=== PATIENT | male | born 1980 | race Two or more races ===

== ENCOUNTER 2016-05-06 17:00 | Emergency (ER) | payer SELFPAY ==
--- NOTE | 2016-05-06 17:43 | ER Document Report ---
ED Cardiac - General Mode of Arrival: Ambulatory Information source: Patient TRAVEL OUTSIDE OF THE [place] IN LAST 30 DAYS: No - HPI Patient complains to provider of: Chest pain, Shortness of breath Was the onset of pain: Gradual Chest pain location: Under breast Quality of pain: Intermittent Chest pain radiation location: Back Pain level currently: Denies Cardiac risk factors: denies: Smoker, + Family history, Hx [place] Positive cardiac history: No Associated symptoms: Back pain, Fever/chills - Subjective 2 days ago, Shortness of breath. denies: Abdominal pain, Dizziness, Headache, Nausea/vomiting Exacerbated by: Coughing Relieved by: Rest Similar symptoms previously: No Recently seen / treated by doctor: Yes - seen at urgent care and to here for further evaluation <YUMI PIÑA - Last Filed: 05/06/16 19:25> <PETE MAYEN - Last Filed: 05/07/16 08:14> - General Chief Complaint: Chest Pain Stated Complaint: COUGH Notes: Patient presents complaining of occasionally productive cough for the past 5 days. Patient reports subjective fever 2 days ago but none since then. Patient states that he developed chest pain with coughing only and shortness of breath this morning. Patient states that whenever he is sitting there with coughing he does not have any chest pain. Patient denies any family history of early cardiac disease. She was seen in an urgent care and had an EKG performed and given aspirin and advised to come here for further evaluation. (YUMI PIÑA) - Related Data Allergies/Adverse Reactions: No Known Allergies Allergy (Verified 05/06/16 17:06) Past Medical History - General Information source: Patient - Social History Smoking Status: Never Smoker Frequency of alcohol use: Occasional Drug Abuse: None Occupation: construction Lives with: Family Family History: Reviewed & Not Pertinent Patient has suicidal ideation: No Patient has homicidal ideation: No - Medical History Medical History: Negative Renal/ Medical History: Denies: Hx Peritoneal Dialysis Surgical Hx: Negative <YUMI PIÑA - Last Filed: 05/06/16 19:25> Review of Systems - Review of Systems Constitutional: Fever - Subjective 2 days ago EENT: No symptoms reported Cardiovascular: Chest pain. denies: Dizziness, Lightheaded Respiratory: Cough, Short of breath, Sputum, Wheezing Gastrointestinal: No symptoms reported. denies: Abdominal pain, Diarrhea, Nausea, Vomiting Genitourinary: No symptoms reported. denies: Dysuria, Flank pain Male Genitourinary: No symptoms reported Musculoskeletal: Back pain - Chest pain radiates to the back with coughing Skin: No symptoms reported Hematologic/Lymphatic: No symptoms reported Neurological/Psychological: No symptoms reported <YUMI PIÑA - Last Filed: 05/06/16 19:25> Physical Exam - General General appearance: Appears well, Alert In distress: None - HEENT Head: Normocephalic, Atraumatic Eyes: Normal Conjunctiva: Normal Nasal: Normal Mouth/Lips: Normal Mucous membranes: Normal Pharynx: Normal Neck: Normal, Supple. No: Lymphadenopathy - Respiratory Respiratory status: No respiratory distress Chest status: Pain with cough Breath sounds: Nonproductive cough, Wheezing Chest palpation: Normal. No: Tender - Cardiovascular Rhythm: Regular Heart sounds: S1 appreciated, S2 appreciated Murmur: No - Back Back: Normal, Nontender. No: CVA tenderness - Extremities General upper extremity: Normal inspection, Normal strength General lower extremity: Normal inspection, Normal strength - Neurological Neuro grossly intact: Yes Cognition: Normal Orientation: AAOx4 [place] Coma Scale Eye Opening: Spontaneous [place] Coma Scale Verbal: Oriented [place] Coma Scale Motor: Obeys Commands [place] Coma Scale Total: 15 - Psychological Associated symptoms: Normal affect, Normal mood - Skin Skin Temperature: Warm Skin Moisture: Dry Skin Color: Normal <YUMI PIÑA - Last Filed: 05/06/16 19:25> - Respiratory Respiratory status: No respiratory distress Chest status: Pain with cough Breath sounds: Normal - CTAB, Nonproductive cough Chest palpation: Normal - Cardiovascular Rhythm: Regular Heart sounds: Normal auscultation Murmur: No Pulses: Normal: Radial Normal capillary refill: Yes <PETE MAYEN - Last Filed: 05/07/16 08:14> - Vital signs Vitals: Temp Pulse Resp BP Pulse Ox 98.8 F 73 16 141/93 H 96 05/06/16 17:05 05/06/16 17:05 05/06/16 17:05 05/06/16 17:05 05/06/16 17:05 Course - Laboratory Result Diagrams: 05/06/16 18:22 05/06/16 18:22 <WANGBRIONNANAGI - Last Filed: 05/06/16 19:25> - Laboratory Result Diagrams: 05/06/16 18:22 05/06/16 18:22 - Diagnostic Test Radiology reviewed: Image reviewed, Reports reviewed - EKG Interpretation by Me EKG shows normal: Sinus rhythm, [place], Intervals, QRS Complexes, ST-T Waves - T- wave inversions Rate: Normal When compared to previous EKG there are: Previous EKG unavailable <PETE MAYEN - Last Filed: 05/07/16 08:14> - Re-evaluation Re-evalutation: 05/06/16 19:25 Bedside report and handoff given to Char Mayen PAPER BALING MACHINE OPERATOR (YUMI PIÑA) 05/06/16 21:00 Patient hemodynamically stable, in no distress, afebrile, nontoxic, and appears well-hydrated. Cardiac enzymes negative. Chest x-ray shows left upper lobe pneumonia. Reevaluated patient who has clear lung sounds and reports chest pain is only with cough and he has no chest pain at rest or with exertion as he has been walking daily over the last 2 weeks for exercise up to 5 miles a day with no chest pain, diaphoresis, or dyspnea. Discussed findings with ED physician Dr. Mcadams who recommends treating pneumonia with oral Levaquin and follow up with facs teacher for abnormal findings on EKG. (PETE MAYEN) - Vital Signs Vital signs: Temp Pulse Resp BP Pulse Ox 98.8 F 73 20 103/49 L 96 05/06/16 17:05 05/06/16 17:05 05/06/16 21:15 05/06/16 21:15 05/06/16 21:15 - Laboratory Laboratory results interpreted by me: 05/06/16 05/06/16 18:22 18:22 RBC 4.26 L Hgb 13.2 L Hct 37.8 L Monocytes % 14.7 H Creatine Kinase 207 H Discharge <YUMI PIÑA - Last Filed: 05/06/16 19:25> <PETE MAYEN - Last Filed: 05/07/16 08:14> - Discharge Clinical Impression: Pneumonia Qualifiers: Pneumonia type: due to unspecified organism Laterality: left Lung location: upper lobe of lung Qualified Code(s): J18.1 - Lobar pneumonia, unspecified organism Condition: Stable Disposition: HOME, SELF-CARE Instructions: Pneumonia ([facility]), Levofloxacin, Inhaled Bronchodilators ([facility]), Steroid Medication, Chest Pain of Unclear Cause ([facility]), Electrogram Abnormality ( [facility]) Additional Instructions: Follow-up with your primary care provider this week. Call [facility] [employer] for appointment on Sunday. Return to the Emergency Department if you develop chest pain without cough, shortness of breath, or any other worsening symptoms or concerns. Prescriptions: Albuterol Sulfate [Proair HFA Inhalation Aerosol 8.5 gm MDI] 2 puff IH Q4H PRN # 1 mdi PRN Reason: Levofloxacin [Levaquin 750 mg Tablet] 750 mg PO DAILY #7 tablet Prednisone [Deltasone 10 mg Tablet] 10 mg PO ASDIR PRN #21 tablet PRN Reason: Forms: Elevated Blood Pressure Referrals: MAYRA ABEBE MD [ACTIVE STAFF] - 05/08/16
[2016-05-06 18:58] LABS: ABSOLUTE EOSINOPHILS # (AUTO) 0.1 10^3/uL (0.0-0.6); ABSOLUTE LYMPHOCYTES (AUTO) 2.2 10^3/uL (0.5-4.7); ABSOLUTE MONOCYTES (AUTO) 1.3 10^3/uL (0.1-1.4); ABSOLUTE NEUT (AUTO) 5.1 10^3/uL (1.7-8.2); BASOPHILS % (AUTO) 0.5 % (0-2); EOSINOPHILS % (AUTO) 1.6 % (0-6); HEMATOCRIT 37.8 % (37.9-51.0); HEMOGLOBIN 13.2 g/dL (13.5-17.0); HGB HCT DIFFERENCE 1.8; LYMPHOCYTES % (AUTO) 25.1 % (13-45); MEAN CORPUSCULAR HEMOGLOBIN 30.9 pg (27.0-33.4); MEAN CORPUSCULAR HGB CONC 34.9 g/dL (32.0-36.0); MEAN CORPUSCULAR VOLUME 89 fl (80-97); MONOCYTES % (AUTO) 14.7 % (3-13); RED BLOOD COUNT 4.26 10^6/uL (4.35-5.55); RED CELL DISTRIBUTION WIDTH 12.8 % (11.5-14.0); SEGMENTED NEUTROPHILS % (AUTO) 58.1 % (42-78); WHITE BLOOD COUNT 8.8 10^3/uL (4.0-10.5)
[2016-05-06 19:18] LABS: ALANINE AMINOTRANSFERASE 34 U/L (21-72); ALBUMIN 4.6 g/dL (3.5-5.0); ALKALINE PHOSPHATASE 73 U/L (38-126); ANION GAP 15 (5-19); ASPARTATE AMINO TRANSFERASE 21 U/L (17-59); BILIRUBIN,DIRECT 0.2 mg/dL (0.0-0.4); BILIRUBIN,TOTAL 0.6 mg/dL (0.2-1.3); BLOOD UREA NITROGEN 11 mg/dL (7-20); CALCIUM 9.6 mg/dL (8.4-10.2); CARBON DIOXIDE 25 mmol/L (22-30); CHLORIDE 105 mmol/L (98-107); CREATINE KINASE 207 U/L (55-170); GLUCOSE 92 mg/dL (75-110); LIPASE 65.4 U/L (23-300); MAGNESIUM 2.2 mg/dL (1.6-2.3); POTASSIUM 4.5 mmol/L (3.6-5.0); TOTAL PROTEIN 7.4 g/dL (6.3-8.2)
[2016-05-06] MEDS ORDERED: PREDNISONE 20 MG TABLET PO ONE (19:24)
[2016-05-06] MEDS ORDERED: IPRATROPIUM/ALBUTEROL 0.5-2.5 MG/3 ML AMPUL NEB ONE (19:24)
[2016-05-06 19:36] LABS: CREATINE KINASE MB 1.76 ng/mL (<4.55); TROPONIN I < 0.012 ng/mL
[2016-05-06 19:39] LABS: APPEARANCE,URINE CLEAR; BILIRUBIN,URINE NEGATIVE (NEGATIVE); GLUCOSE, URINE NEGATIVE (NEGATIVE); KETONES,URINE NEGATIVE (NEGATIVE)
[2016-05-06 19:40] LABS: LEUKOCYTE ESTERASE,URINE NEGATIVE (NEGATIVE); NITRITE,URINE NEGATIVE (NEGATIVE); PROTEIN,URINE NEGATIVE (NEGATIVE); URINE SPECIFIC GRAVITY 1.011; UROBILINOGEN,URINE NEGATIVE mg/dL (<2.0)
[2016-05-06 19:46] LABS: URINE BARBITURATES SCREEN NEGATIVE; URINE METHADONE SCREEN NEGATIVE; URINE OPIATES LOW NEGATIVE; URINE PHENCYCLIDINE SCREEN NEGATIVE
[2016-05-06] MEDS ORDERED: LEVOFLOXACIN 750 MG TABLET PO ONE (20:32)
[2016-05-06 21:25] VITALS: BP 103/49
--- NOTE | 2016-05-07 00:07 | EKG REPORT ---
SEVERITY:- ABNORMAL ECG - SINUS RHYTHM ABNORMAL T, CONSIDER ISCHEMIA, DIFFUSE LEADS : Confirmed by: Sujata Lynn 07-May-2016 00:06:37
== END 2016-05-06 21:25 | disposition home or self-care (01) ==
LOC: ER 17:00
DX: J18.1 Lobar pneumonia, unspecified organism (principal); R06.02 Shortness of breath; R05 Cough; R07.89 Other chest pain; R06.2 Wheezing
CPT/HCPCS: 93005; 94640; 99285; 36415; 82553; 82550; 83690; 83735; 85025; 80053; 81001; 84484; 80307; 71020; 93010; J7512; J7620

== ENCOUNTER 2019-01-20 13:46 | Emergency (ER) | payer SELFPAY ==
--- NOTE | 2019-01-20 16:42 | ER Document Report ---
ED Medical Screen (RME) - General Chief Complaint: Chest Pain Stated Complaint: CHEST PAIN Time Seen by Provider: 01/20/19 16:32 Mode of Arrival: Ambulatory Information source: Patient Notes: This 38-year-old male with history of pneumonia presents emergency department with left-sided chest pain. Reports he was treated for pneumonia last Sunday with Zithromax. He reports this morning started having chest pain felt a bit dizzy. He also reports that he has had some rectal bleeding. Denies fever vomiting diarrhea. Denies history of cardiac disease. I have greeted and performed a rapid initial assessment of this patient. A comprehensive ED assessment and evaluation of the patient, analysis of test results and completion of the medical decision making process will be conducted by additional ED providers. Dictation of this chart was performed using voice recognition software; therefore, there may be some unintended grammatical errors. TRAVEL OUTSIDE OF THE [place] IN LAST 30 DAYS: No - Related Data Allergies/Adverse Reactions: No Known Allergies Allergy (Verified 05/06/16 17:06) Past Medical History Renal/ Medical History: Denies: Hx Peritoneal Dialysis Physical Exam - Vital signs Vitals: Temp Pulse Resp BP Pulse Ox 99.0 F 72 16 156/90 H 98 01/20/19 14:32 01/20/19 14:32 01/20/19 14:32 01/20/19 14:32 01/20/19 14:32 Course - Vital Signs Vital signs: Temp Pulse Resp BP Pulse Ox 99.0 F 72 16 156/90 H 98 01/20/19 16:33 01/20/19 14:32 01/20/19 16:33 01/20/19 14:32 01/20/19 16:33
--- NOTE | 2019-01-20 17:31 | RADIOLOGY REPORT (SQ) ---
EXAM DESCRIPTION: CHEST 2 VIEWS COMPLETED DATE/TIME: 01/20/2019 5:17 pm REASON FOR STUDY: cp COMPARISON: 05/06/2016. EXAM PARAMETERS: NUMBER OF VIEWS: two views TECHNIQUE: Digital Frontal and Lateral radiographic views of the chest acquired. RADIATION DOSE: NA LIMITATIONS: none FINDINGS: LUNGS AND PLEURA: No opacities, masses or pneumothorax. No pleural effusion. MEDIASTINUM AND HILAR STRUCTURES: No masses or contour abnormalities. HEART AND VASCULAR STRUCTURES: Heart normal size. No evidence for failure. BONES: No acute findings. HARDWARE: None in the chest. OTHER: No other significant finding. IMPRESSION: NO ACUTE RADIOGRAPHIC FINDING IN THE CHEST. TECHNICAL DOCUMENTATION: JOB ID: [id number] [employer]- All Rights Reserved Reading location - IP/workstation name: [email or web address]
[2019-01-20 17:41] LABS: ABSOLUTE BASOPHILS # (AUTO) 0.1 10^3/uL (0.0-0.2); ABSOLUTE EOSINOPHILS # (AUTO) 0.1 10^3/uL (0.0-0.6); ABSOLUTE LYMPHOCYTES (AUTO) 2.6 10^3/uL (0.5-4.7); ABSOLUTE MONOCYTES (AUTO) 0.8 10^3/uL (0.1-1.4); BASOPHILS % (AUTO) 0.7 % (0-2); EOSINOPHILS % (AUTO) 0.6 % (0-6); HEMATOCRIT 43.3 % (37.9-51.0); LYMPHOCYTES % (AUTO) 27.4 % (13-45); MEAN CORPUSCULAR HEMOGLOBIN 31.5 pg (27.0-33.4); MEAN CORPUSCULAR HGB CONC 34.6 g/dL (32.0-36.0); MEAN CORPUSCULAR VOLUME 91 fl (80-97); MONOCYTES % (AUTO) 8.7 % (3-13); PLATELET COUNT 337 10^3/uL (150-450); RED BLOOD COUNT 4.76 10^6/uL (4.35-5.55); RED CELL DISTRIBUTION WIDTH 12.9 % (11.5-14.0); SEGMENTED NEUTROPHILS % (AUTO) 62.6 % (42-78); TOTAL CELLS COUNTED % (AUTO) 100 %; WHITE BLOOD COUNT 9.5 10^3/uL (4.0-10.5)
[2019-01-20 17:59] LABS: ALKALINE PHOSPHATASE 67 U/L (38-126); ANION GAP 13 (5-19); ASPARTATE AMINO TRANSFERASE 19 U/L (17-59); BILIRUBIN,DIRECT 0.1 mg/dL (0.0-0.4); BILIRUBIN,TOTAL 0.6 mg/dL (0.2-1.3); BLOOD UREA NITROGEN 10 mg/dL (7-20); CALCIUM 9.6 mg/dL (8.4-10.2); CARBON DIOXIDE 27 mmol/L (22-30); CHLORIDE 102 mmol/L (98-107); CREATINE KINASE 91 U/L (55-170); GLUCOSE 91 mg/dL (75-110); POTASSIUM 4.2 mmol/L (3.6-5.0); TOTAL PROTEIN 8.5 g/dL (6.3-8.2)
[2019-01-20 18:11] LABS: CREATINE KINASE MB 1.02 ng/mL (<4.55)
[2019-01-20 18:13] LABS: TROPONIN I < 0.012 ng/mL
--- NOTE | 2019-01-20 20:58 | ER Document Report ---
ED General - General Chief Complaint: Chest Pain Stated Complaint: CHEST PAIN Time Seen by Provider: 01/20/19 16:32 Mode of Arrival: Ambulatory Notes: 38-year-old man presents to the emergency department with a complaint of chest pain. States that he was diagnosed with pneumonia approximately 1 week ago at a outside facility. He was treated with Cipro. He continues to have left-sided intermittent chest pain which lasts from 1 to 2 minutes. He does not relate activity to the symptom and the pain is nonradiating. He is not a smoker, denies shortness of breath, and has no palpitations. TRAVEL OUTSIDE OF THE [place] IN LAST 30 DAYS: No - Related Data Allergies/Adverse Reactions: No Known Allergies Allergy (Verified 05/06/16 17:06) Past Medical History - General Information source: Patient - Social History Smoking Status: Former Smoker Cigarette use (# per day): No Family History: Reviewed & Not Pertinent Patient has suicidal ideation: No Patient has homicidal ideation: No Renal/ Medical History: Denies: Hx Peritoneal Dialysis Review of Systems - Review of Systems Notes: Constitutional: Negative for fever. HENT: Negative for sore throat. Eyes: Negative for visual changes. Cardiovascular: + chest pain. Respiratory: Negative for shortness of breath. Gastrointestinal: Negative for abdominal pain, vomiting or diarrhea. Genitourinary: Negative for dysuria. Musculoskeletal: Negative for back pain. Skin: Negative for rash. Neurological: Negative for headaches, weakness or numbness. 10 point ROS negative except as marked above and in HPI. Physical Exam - Vital signs Vitals: Temp Pulse Resp BP Pulse Ox 99.0 F 72 16 156/90 H 98 01/20/19 14:32 01/20/19 14:32 01/20/19 14:32 01/20/19 14:32 01/20/19 14:32 - Notes Notes: PHYSICAL EXAMINATION: Physical Exam: General: Well-nourished well-developed in no acute distress HEENT: NC/AT, pupils equal round and reactive to light, MM moist,nares clear, Neck: supple, no adenopathy, no masses. Lungs: clear, no wheezing, no rales no rhonchi Chest: Tenderness to palpation in the left lateral and posterior chest. CVS: Regular rate and rhythm no murmur gallop or rub Abdomen: Soft active nontender, no masses, no hepatosplenomegaly Ext: No edema clubbing or cyanosis. Neuro: Alert and responsive, moving all 4 extremities on command, cranial nerves intact. Skin: Intact no open lesions, no rash PSYCH: Normal mood, normal affect. Course - Re-evaluation Re-evalutation: 01/20/19 21:01 Patient presents to the emergency department with complaint of chest pain. Apparently diagnosed 1 week ago with pneumonia. Apparently he then taking Cipro for the past 7 days. He continues to have intermittent episodes of chest pain. Exam chest wall tenderness on the left side suggest musculoskeletal etiology. Chest x-ray EKG and labs are negative for pneumonia or acute coronary syndrome. I discussed with the patient the likelihood that this is musculoskeletal and possibly muscle spasms. He is given prescriptions for baclofen and Naprosyn and instructed to take those medications as prescribed. - Vital Signs Vital signs: Temp Pulse Resp BP Pulse Ox 98.8 F 65 16 127/87 H 99 01/20/19 20:29 01/20/19 20:29 01/20/19 20:29 01/20/19 20:29 01/20/19 20:29 01/20/19 21:10 38-year-old man who apparently seen as an outpatient 1 week ago and diagnosed with pneumonia. He denies cough or fever, apparently had noted dizziness and intermittent chest discomfort. He was prescribed Cipro for 10 days. Continues to complain of discomfort in his chest which is fleeting intermittent and at rest or with activity. He has tenderness when he arches his back or rotates his torso. Electrocardiogram, chest x-ray and labs were performed all of which are nondiagnostic of cardiovascular disease or pneumonia. Discussed the likelihood of this being musculoskeletal pain with the patient he is given prescription for baclofen and Naprosyn. - Laboratory Result Diagrams: 01/20/19 17:21 01/20/19 17:21 Laboratory results interpreted by me: 01/20/19 17:21 Total Protein 8.5 H 01/20/19 21:09 I have reviewed laboratory data and used this information for the treatment decisions regarding the patient. Discharge - Discharge Clinical Impression: Non-cardiac chest pain, Muscle spasm Condition: Good Disposition: HOME, SELF-CARE Instructions: Chest Wall Pain ([facility]) Additional Instructions: Please use the medication as prescribed, baclofen, Naprosyn Continue Cipro, follow-up with your doctor as needed next.
[2019-01-20 22:53] VITALS: BP 108/65
--- NOTE | 2019-01-21 00:24 | EKG REPORT ---
SEVERITY:- NORMAL ECG - SINUS RHYTHM LVH WITH SECONDARY ST-T WAVE CHANGES. : Confirmed by: Sujata Lynn 21-Jan-2019 00:23:30
== END 2019-01-20 22:53 | disposition home or self-care (01) ==
LOC: ER 13:46
DX: R07.89 Other chest pain (principal); M62.838 Other muscle spasm; J18.9 Pneumonia, unspecified organism; Z87.891 Personal history of nicotine dependence; Z87.01 Personal history of pneumonia (recurrent)
CPT/HCPCS: 36415; 71046; 80053; 82550; 82553; 84484; 85025; 93005; 93010; 99284

== ENCOUNTER 2019-08-07 16:15 | Emergency (ER) | payer SELFPAY ==
[2019-08-07] MEDS ORDERED: LIDOCAINE 1.5%/EPINEPHRINE INJ-PF 30 ML SDV INJ ONE (16:46)
[2019-08-07] MEDS ORDERED: TRANEXAMIC ACID INJ/PF 1,000 MG/10 ML SDV TOP ONE (16:47)
[2019-08-07] MEDS ORDERED: DIPH/PERTUSS(ACELL)/TETANUS VAC/PF 0.5 ML SYR (>=10YO) IM ONE (16:48)
--- NOTE | 2019-08-07 16:52 | ER Document Report ---
ED General <IVAN BECK - Last Filed: 08/07/19 19:04> - General TRAVEL OUTSIDE OF THE [place] IN LAST 30 DAYS: No - Related Data Home Medications: Multivitamin, Naprosyn <BESSYCHESTER - Last Filed: 08/07/19 19:32> - General Chief Complaint: Laceration Stated Complaint: LACERATION/RIGHT WRIST,ARM Time Seen by Provider: 08/07/19 16:46 Primary Care Provider: RENETTA CALDERON MD [Primary Care Provider] - Follow up as needed - HPI Notes: Patient is a 39-year-old male. He was at work, a window was dropped on his hand. He sustained a laceration to the hand, with heavy bleeding. He is unsure of his tetanus status. He has minimal pain. He denies any numbness or tingling. He is not on blood thinners. (CHESTER DOHERTY) - Related Data Allergies/Adverse Reactions: No Known Allergies Allergy (Verified 05/06/16 17:06) Past Medical History - General Information source: Patient - Social History Smoking Status: Never Smoker Drug Abuse: None Family History: Reviewed & Not Pertinent, Hypertension Patient has homicidal ideation: No Renal/ Medical History: Denies: Hx Peritoneal Dialysis <CHESTER DOHERTY - Last Filed: 08/07/19 19:32> Review of Systems - Review of Systems Skin: See HPI -: Yes All other systems reviewed and negative <CHESTER DOHERTY - Last Filed: 08/07/19 19:32> Physical Exam <CHESTER DOHERTY - Last Filed: 08/07/19 19:32> - Vital signs Vitals: Temp 99.3 F 08/07/19 16:15 - Notes Notes: This is a very pleasant 39-year-old male appears stated age, no acute distress. Head is normocephalic and atraumatic, pupils are equal round, reactive to light. Heart is regular rate and rhythm, lungs are clear to auscultation bilaterally. At the time of my exam, pressure cuff is inflated to the forearm. He has full range of motion of the shoulder, elbow, wrist, fingers, thumb. Examination of the dorsum of the hand yields a 2.5 cm laceration over the mid dorsum of the hand, overlying the second metacarpal. Difficult to fully visualize the wound secondary to heavy amount of bleeding. Capillary refill is delayed, likely secondary to the pressure cuff. Sensation is intact. (CHESTER DOHERTY) Course - Diagnostic Test Radiology reviewed: Reports reviewed <CHESTER DOHERTY - Last Filed: 08/07/19 19:32> - Re-evaluation Re-evalutation: 08/07/19 16:51 Patient presents to the emergency department for evaluation. He has a laceration with what appears to be significant venous bleeding. His wound was infiltrated with approximately 9 cc of lidocaine with epinephrine. This did slow the bleeding some. I was able to then cover the wound with TXA topically, then a pressure dressing was placed. The patient's hand was placed in the air, will recheck. Patient is currently stable. 08/07/19 17:42 Patient was complaining of some increased pain and numbness in his hand. The bleeding had not yet soaked through the bandage. I went in and evaluated the patient, he does have some minor increased swelling in his fingers, not unexpected. He did have intact sensation to light touch and range of motion. I did remove the Mike bandage. The patient has not bled through the gauze in place. After removal of the bandage his pain subsided, his tingling improved. He is able to move his fingers. We will continue to have the TXA in place with his arm elevated. Put in an x-ray to rule out foreign body. Patient is currently stable, has been given pain medicine, we will continue to monitor. 08/07/19 18:37 Patient's bandages removed, arm placed in normal position, no rebleeding. Nurse practitioner will close the wound. 08/07/19 19:21 Hemostasis achieved appropriately. Laceration closed by nurse practitioner Ivan Beck, please see his procedure note. Patient neurovascularly intact following. Will place patient on prophylactic antibiotics as the wound was not thoroughly scrubbed secondary to the significant amount of bleeding. Sutures to be removed in 7 days. Work excuse given until Sunday. He is to return to the ED with worsening or new concerning symptoms of any sort. (CHESTER DOHERTY) - Vital Signs Vital signs: Temp Pulse Resp BP Pulse Ox 99.3 F 08/07/19 16:15 - Diagnostic Test Radiology results interpreted by me: 08/07/19 18:37 Hand X-Ray 08/07/19 17:41 IMPRESSION: No radiopaque foreign body. No osseous abnormality. (CHESTER DOHERTY) Procedures - Laceration/Wound Repair Right Dorsal Hand Time completed: 19:04 Wound length (cm): 2.5 Wound's Depth, Shape: Linear Laceration pre-procedure: Sterile PPE donned, Sterile drapes applied, Other - saline Anesthetic type: 1% Lidocaine w/epi Volume Anesthetic (mLs): 1 Wound explored: Clean, No foreign body removed Irrigated w/ Saline (mLs): 500 Wound Repaired With: Sutures Suture Size/Type: 4:0, Prolene Number of Sutures: 5 Layer Closure?: No Post-procedure wound care: Sterile dressing applied Post-procedure NV exam normal: Yes Complications: No <IVAN BECK - Last Filed: 08/07/19 19:04> Discharge <IVAN BECK - Last Filed: 08/07/19 19:04> <CHESTER DOHERTY - Last Filed: 08/07/19 19:32> - Discharge Clinical Impression: Laceration of right hand Qualifiers: Encounter type: initial encounter Foreign body presence: without foreign body Qualified Code(s): S61.411A - Laceration without foreign body of right hand, initial encounter Condition: Stable Disposition: HOME, SELF-CARE Instructions: Antibiotic Ointment Protection ([facility]), Laceration Care ([facility]), Prophylactic Antibiotic ([facility]) Additional Instructions: Keep wound clean, gently with soap and water. Take antibiotic as prescribed. Have sutures removed in 7 days. If you get rebleeding, please apply direct pressure, keep hand elevated for 15 minutes. If bleeding persists come to the emergency department. Otherwise, return to the ED with worsening or new concerning symptoms of any sort. Referrals: RENETTA CALDERON MD [Primary Care Provider] - Follow up as needed
[2019-08-07] MEDS ORDERED: ONDANSETRON 4 MG TAB.RAPDIS PO ONE (17:06)
[2019-08-07] MEDS ORDERED: OXYCODONE-ACETAMINOPHEN 5-325 MG TABLET PO ONE (17:06)
--- NOTE | 2019-08-07 18:15 | RADIOLOGY REPORT (SQ) ---
EXAM DESCRIPTION: HAND RIGHT 3 VIEWS IMAGES COMPLETED DATE/TIME: 08/07/2019 6:00 pm REASON FOR STUDY: Laceration, eval for foreign body COMPARISON: None. EXAM PARAMETERS: NUMBER OF VIEWS: Three views. TECHNIQUE: AP, lateral and oblique radiographic images acquired of the right hand. LIMITATIONS: None. FINDINGS: MINERALIZATION: Normal. BONES: No acute fracture or dislocation. No worrisome bone lesions. JOINTS: No effusions. SOFT TISSUES: No soft tissue swelling. No foreign body. OTHER: No other significant finding. IMPRESSION: No radiopaque foreign body. No osseous abnormality. TECHNICAL DOCUMENTATION: JOB ID: [id number] [employer]- All Rights Reserved Reading location - IP/workstation name: [email or web address]
[2019-08-07] MEDS ORDERED: LIDOCAINE 1%/EPINEPHRINE INJ 20 ML VIAL INJ ONE (18:37)
[2019-08-07] MEDS ORDERED: CEPHALEXIN 500 MG CAPSULE PO ONE (19:30)
[2019-08-07 20:55] VITALS: BP 133/87
== END 2019-08-07 20:25 | disposition home or self-care (01) ==
LOC: ER 16:15
DX: S61.411A Laceration without foreign body of right hand, initial encounter (principal); W25.XXXA Contact with sharp glass, initial encounter; Y93.89 Activity, other specified; Y99.0 Civilian activity done for income or pay; Z23 Encounter for immunization
CPT/HCPCS: 99283; 90471; 73130; 90715; 12001; S0119; J3490 ×3